=== PATIENT | male | born 1990 | race Caucasian/White ===

== ENCOUNTER 2016-11-13 22:53 | Emergency (ER) | payer BC ==
[~2016-11-13] VITALS: Ht 170.2 cm; Wt 70.0 kg
[~2016-11-13 22:53] MED LIST: PROM25SU8 PO; Z.0.NO CURRENT MEDS
[2016-11-13 23:00] VITALS: BP 128/88; PULSE 77; RESP 18; TEMP 98.5; O2SAT 98
[2016-11-13 23:42] VITALS: BP 139/78; PULSE 64; RESP 18; TEMP 98; O2SAT 98
[2016-11-14] MEDS ORDERED: IBUP800T23 PO (01:25)
[2016-11-14] MEDS ORDERED: CYCL1TAB29 PO (01:25)
--- NOTE | 2016-11-14 01:27 | PD ---
HPI Chief Complaint: Back/ Neck Pain or Injury Time Seen by Provider: 01:14 Travel History International Travel<30 days: No Contact w/Intl Traveler<30days: No Traveled to known affect area: No History of Present Illness HPI The patient is a 26-year-old male who complains of primarily left lumbosacral pain for 4-5 days. 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 He does have some episodes of pain radiating to the left lower leg and some slight numbness on occasion but he denies any foot drop or unsteady gait. He denies any trauma. He denies any bladder or bowel dysfunction. PFSH Past Medical History Tetanus Vaccination: Unknown Influenza Vaccination: No Social History Alcohol Use: Yes (2 beers/ daily) Tobacco Use: No Substance Use: No Allergies-Medications (Allergen,Severity, Reaction): Coded Allergies: No Known Allergies (Unverified , 11/13/16) Reported Meds & Prescriptions Reported Meds & Active Scripts Active Review of Systems Except as stated in HPI: all other systems reviewed are Neg Physical Exam Narrative GENERAL: The patient is alert, oriented 3 and minimal apparent distress with his low back pain. His vital signs are normal. SKIN: Warm and dry. No skin rash is seen. HEAD: Atraumatic. Normocephalic. EYES: Pupils equal and round. No scleral icterus. No injection or drainage. ENT: No nasal bleeding or discharge. Mucous membranes pink and moist. NECK: Trachea midline. No JVD. CARDIOVASCULAR: Regular rate and rhythm. No murmur appreciated. RESPIRATORY: No accessory muscle use. Clear to auscultation. Breath sounds equal bilaterally. GASTROINTESTINAL: Abdomen soft, non-tender, nondistended. Hepatic and splenic margins not palpable. MUSCULOSKELETAL: No obvious deformities. No clubbing. No cyanosis. No edema. Straight leg raising is normal in that there is no radiation of pain but he does have low back pain when I do straight leg raising on the left, deep tendon reflexes are +2 bilaterally both patella Achilles and pinprick is normal. There is tenderness on the left lumbosacral area along the musculature. I cannot reproduce any right tenderness. NEUROLOGICAL: Awake and alert. No obvious cranial nerve deficits. Motor grossly within normal limits. Normal speech. PSYCHIATRIC: Appropriate mood and affect; insight and judgment normal. Data Data Last Documented VS Vital Signs Date Time Temp Pulse Resp B/P Pulse Ox O2 Delivery O2 Flow Rate FiO2 11/13/16 23:51 63 11/13/16 23:42 98.0 18 139/78 98 MDM Medical Decision Making Medical Screen Exam Complete: Yes Emergency Medical Condition: Yes Medical Record Reviewed: Yes Differential Diagnosis Acute lumbosacral strain, herniated nucleus pulposus, fasciitis Narrative Course The patient appears to have an acute lumbosacral strain. At this time there is no evidence for herniated nucleus pulposus. He does have some nerve root irritation but this is unlikely to be a herniated disc. Plan: The patient is to rest, use a heating pad, take Motrin and is given also a prescription for Flexeril. He is given off work for 2 days. Diagnosis Primary Impression: Lumbosacral strain Additional Instructions: As we discussed, use a heating pad and turn it on its lowest setting and interposing a towel between your skin and the pad to avoid phillips. Do not drink alcohol or drive on the Flexeril because it makes you sleepy. Med/Other Pt SpecificInfo: Prescription(s) given Scripts Ibuprofen 800 Mg [id number] Mg PO TID #45 TAB Ref 0 Prov:Patrick Charles MD 11/14/16 Cyclobenzaprine (Flexeril)10 Mg Tab10 Mg PO TID #60 TAB Ref 0 Prov:Patrick Charles MD 11/14/16 Disposition: 01 DISCHARGE HOME Condition: Stable Patrick Charles MD Nov 14, 2016 01:27
[2016-11-14] MEDS ORDERED: KETOROLAC TROMETHAMINE 60 MG/2 ML (IM) VIAL IM ONE (01:30)
[2016-11-14] MEDS ORDERED: ORPHENADRINE INJ 60 MG/2 ML AMP IM ONE (01:30)
[2016-11-14 01:46] VITALS: BP 132/77
== END 2016-11-14 01:56 | disposition home or self-care (01) ==
LOC: PHED 22:53
DX: S39.012A Strain of muscle, fascia and tendon of lower back, initial encounter (principal); X50.9XXA Other and unspecified overexertion or strenuous movements or postures, initial encounter
CPT/HCPCS: 96372; 99283; J1885; J2360